=== PATIENT | female | born 2000 | race Caucasian/White ===

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

== ENCOUNTER → 2021-08-04 18:32 | Outpatient (CLI) | payer OTHER, SELFPAY ==
[2021-08-04 20:03] LABS: Influenza A - CEPHEID Flu A NEGATIVE (NEGATIVE); Influenza B - CEPHEID Flu B NEGATIVE (NEGATIVE)
[2021-08-04 20:30] LABS: COVID-19 CEPHEID PCR (VTM/NP) Negative (Negative)
== END ==
PROVIDERS: Visit Provider Physician Assistant
DX: R05.9 Cough, unspecified (principal); J02.9 Acute pharyngitis, unspecified
CPT/HCPCS: 0240U; 87070; 87077

== ENCOUNTER → 2021-08-07 15:10 | Outpatient (CLI) | payer OTHER, SELFPAY ==
--- NOTE | 2021-08-07 15:13 | DI.RAD.S_ITS ---
PROCEDURE: XR CHEST 2V INDICATIONS: cough, fever, worsening TECHNIQUE: 2 views of the chest were acquired. COMPARISON: None. FINDINGS: Surgical changes and devices: None. Lungs and pleura: Lungs are clear. No pleural effusions or pneumothorax. Mediastinum: Mediastinal contours are normal. Heart size is normal. Bones and chest wall: No suspicious bony abnormalities. Soft tissues appear unremarkable. IMPRESSION: No acute cardiopulmonary disease. Dictated by: Chaitanya Lepe M.D. on 08/07/2021 at 14:26 Approved by: Chaitanya Lepe M.D. on 08/07/2021 at 14:26
== END ==
PROVIDERS: Referring Provider Physician Assistant; Visit Provider Physician Assistant
DX: J06.9 Acute upper respiratory infection, unspecified (principal)
CPT/HCPCS: 71046

== ENCOUNTER → 2021-08-22 15:30 | Outpatient (CLI) | payer OTHER, SELFPAY | PROVIDERS: Visit Provider Nurse Practitioner Family | DX: J02.9 Acute pharyngitis, unspecified (principal) | CPT/HCPCS: 87070 ==

== ENCOUNTER 2021-10-25 18:24 | Emergency (ER) | payer OTHER, SELFPAY ==
[2021-10-25 19:14] VITALS: BP 139/94; PULSE 108; RESP 18; TEMP 36.6; O2SAT 97; BMI 22.7
--- NOTE | 2021-10-25 20:31 | ED.BACK ---
HPI - Back Pain/Injury General Chief Complaint: Back Pain/Injury Stated Complaint: low back pain radiating down legs Time Seen by Provider: 10/25/21 20:29 Source: patient History of Present Illness HPI Narrative: 21F nonsmoker with extensive history of back problems presents with her significant other and the chief complaint of recurrence of back pain with radiation down her left leg. She denies trauma, use of blood thinners or fever. She denies loss of bowel or bladder control. She denies extremity weakness or foot drop. Her pain is worse with movement and improves with rest. Related Data Previous Rx's Medication Instructions Recorded ondansetron 4 mg disintegrating 4 mg PO Q6H PRN nausea and 08/04/21 tablet vomiting #20 tabs benzonatate 100 mg capsule 100 mg PO BID PRN cough #20 caps 08/22/21 cyclobenzaprine 10 mg tablet 10 mg PO TID PRN muscle spasm #14 10/25/21 tabs gabapentin 300 mg capsule 300 mg PO BEDTIME #14 caps 10/25/21 ketorolac 10 mg tablet 10 mg PO Q6H PRN pain #14 tabs 10/25/21 methylprednisolone 4 mg tablets in See Rx Instructions PO .COMPLEX 10/25/21 a dose pack (Medrol (Lan)) #21 ea Allergies Allergy/AdvReac Type Severity Reaction Status Date / Time montelukast [From SINGULAIR] Allergy Unknown Unverified 08/22/21 15:11 prednisone [PREDNISONE] Allergy Unknown Unverified 08/22/21 15:11 sodium chloride for Allergy Unknown Unverified 08/22/21 15:11 inhalation [From NEBUSAL] Review of Systems Review of Systems Narrative: GENERAL: Denies chills, fatigue, malaise, fever, sweats. HEENT: Denies sinus pain, ear pain, sore throat, difficulty swallowing, dizziness. RESPIRATORY: Denies dyspnea, cough, wheezing, hemoptysis, sputum. CARDIOVASCULAR: Denies chest pain, palpitations, orthopnea, edema, GASTROINTESTINAL: Denies nausea, vomiting, abdominal pain, diarrhea, constipation, melena. : Denies dysuria, frequency, incontinence, hematuria, urinary retention. MUSCULOSKELETAL: See HPI SKIN: Denies rash, skin lesions, or other NEUROLOGIC: See HPI PSYCHIATRIC: No concerning psychosocial issues. 12 point review of systems is negative except for those stated above Patient History Medical History Pyelonephritis UTI (urinary tract infection) Social History Smoking Status: Never smoker Smoking Status: Never smoker Substance Use Type: does not use Exam Narrative Exam Narrative: GENERAL: [21] year old patient appears stated age. Well-developed patient, in mild distress. HEAD: Atraumatic. Normocephalic. EYES: Pupils equal round and reactive. Extraocular motions intact. No scleral icterus. No injection or drainage. ENT: Nose without bleeding, purulent drainage. Throat without erythema, tonsillar hypertrophy or exudate. Airway patent. NECK: Trachea midline. Non tender CARDIOVASCULAR: Regular rate and rhythm without murmurs, gallops, or rubs. RESPIRATORY: Clear to auscultation. Breath sounds equal bilaterally. No wheezes, rales, or rhonchi. GASTROINTESTINAL: Abdomen soft, non-tender, nondistended. EXTREMITIES: No edema or joint tenderness. BACK: winder tender but free of any obvious external abnormalities. Patient exam notes decreased range of motion and muscle spasm, but no CVA tenderness, or vertebral point tenderness. There are no symptoms of cauda equina such as saddle anesthesia, and decreased reflexes, decreased sensation or strength. NEURO: AOx3. SKIN: No rash or erythema of visible areas Initial Vital Signs Initial Vital Signs: Vital Signs Temperature 98 F 10/25/21 19:14 Pulse Rate 108 H 10/25/21 19:14 Respiratory Rate 18 10/25/21 19:14 Blood Pressure 139/94 H 10/25/21 19:14 Pulse Oximetry 97 10/25/21 19:14 Oxygen Delivery Method 10/25/21 19:14 Course Orders Ordered: Discontinued Medications Cyclobenzaprine HCl (Cyclobenzaprine 10 Mg Prepack) 1 bottle MISC SEEINSTR ONE Stop: 10/25/21 20:45 Last Admin: 10/25/21 20:53 Dose: 1 bottle Documented By: ARIEL Gabapentin (Gabapentin 300 Mg Capsule) 300 mg PO NOW ONE Stop: 10/25/21 20:45 Last Admin: 10/25/21 20:53 Dose: 300 mg Documented By: NR Vital Signs Vital signs: Vital Signs - 8 hr 10/25/21 19:14 Temperature 98 F Pulse Rate 108 H Respiratory Rate 18 Blood Pressure 139/94 H Pulse Oximetry 97 Oxygen Delivery Method Room Air MDM - Back Pain/Injury MDM Narrative Medical decision making narrative: Multiple etiologies of back pain considered including; Epidural abscess, cauda equina, mass occupying lesion, and other considered, however no neurosurgical emergencies are thought to be present, given patient's reassuring history and physical exam Discharge Plan Departure Patient Disposition: Home Clinical Impression: Acute back pain with radiculopathy Instructions: DI for Lumbar Radiculopathy Activity Restrictions/Additional Instructions: *You have been diagnosed with [acute lumbar radiculopathy without evidence of spinal cord injury] *What to do: *Please continue to take your regular medications as directed. [ x] New medication prescriptions sent to your pharmacy: [ [facility]] [ ] New medication written as a paper prescription [ ] No new medications given *Please follow up with either of the back specialists listed belowe 2-3 days, call for an appointment. Let them know you were seen in the Emergency Department and that we ask that you be seen in follow up. *If you do not have a primary care provider please contact the [facility] Resource line at [phone]. They will ask some questions about your medical history and help get you set up with a doctor in the community. *Return to Emergency Department if you should have any new, worsening or concerning symptoms, such as [fever greater than 101 F, shaking chills, worsening pain, persistent vomiting or other bothersome symptoms] Prescriptions: New cyclobenzaprine 10 mg tablet 10 mg PO TID PRN (Reason: muscle spasm) Qty: 14 0RF ketorolac 10 mg tablet 10 mg PO Q6H PRN (Reason: pain) Qty: 14 0RF gabapentin 300 mg capsule 300 mg PO BEDTIME Qty: 14 0RF methylprednisolone [Medrol (Lan)] 4 mg tablets,dose pack See Rx Instructions .ROUTE .COMPLEX Qty: 21 0RF Rx Instructions: orally per package directions No Action ondansetron 4 mg tablet,disintegrating 4 mg PO Q6H PRN (Reason: nausea and vomiting) Qty: 20 0RF benzonatate 100 mg capsule 100 mg PO BID PRN (Reason: cough) Qty: 20 0RF Referrals: Juan Diego Davis DO [Physician] - Peyman Smyth MD [Physician] - Visit Report Forms: Patient Portal/API
[2021-10-25] MEDS: CYCLOBENZAPRINE 10 MG PREPACK 1 BOTTLE MISC (20:53)
[2021-10-25] MEDS: GABAPENTIN 300 MG CAPSULE PO (20:53)
--- NOTE | 2021-10-25 21:00 | PC.NURSE ---
provider assessed patient.
== END 2021-10-25 21:01 | disposition home or self-care (01) ==
PROVIDERS: Emergency Provider Emergency Medicine
DX: M54.16 Radiculopathy, lumbar region (principal)
CPT/HCPCS: 99283

== ENCOUNTER → 2021-11-29 16:41 | Outpatient (CLI) | payer OTHER, SELFPAY ==
--- NOTE | 2021-11-29 16:48 | DI.RAD.S_ITS ---
PROCEDURE: XR LUMBAR SPINE 2-3V INDICATIONS: low back pain, hx of degeneration and pinched nerve TECHNIQUE: 3 views of the lumbar spine were acquired. COMPARISON: None. FINDINGS: Bones: 6 [id number] vertebrae are present. There is normal bony alignment. No vertebral body compression fractures. Mild bony neural foraminal narrowing at L6-S1. No suspicious bony lesions. Soft tissues: Overlying bowel gas pattern is normal. No suspicious soft tissue calcifications. IMPRESSION: No fractures identified. Suspect bony neural foraminal narrowing at L6-S1. Consider follow-up MRI for further evaluation. Dictated by: Guille Starr M.D. on 11/29/2021 at 17:19 Approved by: Guille Starr M.D. on 11/29/2021 at 17:21
== END ==
PROVIDERS: PCP Physician Assistant; Referring Provider Physician Assistant; Visit Provider Physician Assistant
DX: M54.42 Lumbago with sciatica, left side (principal); M54.41 Lumbago with sciatica, right side
CPT/HCPCS: 72100

== ENCOUNTER 2022-01-07 00:07 | Emergency (ER) | payer OTHER, SELFPAY ==
--- NOTE | 2022-01-07 00:09 | ED.CHESTPAIN ---
HPI - Chest Pain General Chief Complaint: Shortness of Breath/Dyspnea Stated Complaint: chest pain/sob Time Seen by Provider: 01/07/22 00:09 History of Present Illness HPI narrative: 21-year-old female nonsmoker with history of anxiety, prior lumbar radiculopathy presents with significant other and a chief complaint of gradually worsening chest pain, shortness of breath and rapid heart rate over the course of the night. She is admittedly had a stressful night and got some bad news at home and then is reported to have been involved in argument with her significant other and symptoms soon started. She complains of a pressure or squeezing across her anterior chest and denies any radiation. She denies any obvious provocation or palliation. She denies recent travel, history of blood clot but does take control. She denies any lower extremity pain or swelling nor redness or warmth. She takes control which keeps her from having a menstrual cycle. She has had a couple loose stools in the past week but has otherwise been well Related Data Previous Rx's Medication Instructions Recorded ondansetron 4 mg disintegrating 4 mg PO Q6H PRN nausea and 08/04/21 tablet vomiting #20 tabs benzonatate 100 mg capsule 100 mg PO BID PRN cough #20 caps 08/22/21 gabapentin 300 mg capsule 300 mg PO BEDTIME #14 caps 10/25/21 methylprednisolone 4 mg tablets in See Rx Instructions PO .COMPLEX 10/25/21 a dose pack (Medrol (Lan)) #21 ea cyclobenzaprine 10 mg tablet 10 mg PO TID PRN muscle spasm #30 11/29/21 tabs ketorolac 10 mg tablet 10 mg PO Q6H PRN pain #14 tabs 11/29/21 Allergies Allergy/AdvReac Type Severity Reaction Status Date / Time montelukast [From SINGULAIR] Allergy Unknown Unverified 11/29/21 15:59 prednisone [PREDNISONE] Allergy Unknown Unverified 11/29/21 15:59 sodium chloride for Allergy Unknown Unverified 11/29/21 15:59 inhalation [From NEBUSAL] Review of Systems Review of Systems Narrative: GENERAL: Denies chills, fatigue, malaise, fever, sweats. HEENT: Denies sinus pain, ear pain, sore throat, difficulty swallowing, dizziness. RESPIRATORY: See HPI CARDIOVASCULAR: See HPI GASTROINTESTINAL: Denies nausea, vomiting, abdominal pain, diarrhea, constipation, melena. : Denies dysuria, frequency, incontinence, hematuria, urinary retention. MUSCULOSKELETAL: denies weakness, joint pain, or bony pain SKIN: Denies rash, skin lesions, or other NEUROLOGIC: Denies weakness, headache, numbness, change in speech, confusion, seizures, incoordination. PSYCHIATRIC: No concerning psychosocial issues. 12 point review of systems is negative except for those stated above Patient History Medical History (Updated 01/07/22 @ 01:48 by Edmond Priest DO) Pyelonephritis UTI (urinary tract infection) Social History Smoking Status: Never smoker Smoking Status: Never smoker Substance Use Type: does not use Exam Narrative Exam Narrative: GENERAL: [21] year old patient appears stated age. Well-developed patient, in moderate distress, tearful and anxious, hyperventilating HEAD: Atraumatic. Normocephalic. EYES: Pupils equal round and reactive. Extraocular motions intact. No scleral icterus. No injection or drainage. ENT: Nose without bleeding, purulent drainage. Throat without erythema, tonsillar hypertrophy or exudate. Airway patent. NECK: Trachea midline. Non tender CARDIOVASCULAR: Tachycardic and regular rhythm without murmurs, gallops, or rubs. RESPIRATORY: Clear to auscultation. Breath sounds equal bilaterally. No wheezes, rales, or rhonchi. Rapid breathing GASTROINTESTINAL: Abdomen soft, non-tender, nondistended. EXTREMITIES: No edema or joint tenderness. BACK: Nontender without deformity or crepitance. No flank tenderness. NEURO: AOx3. SKIN: No rash or erythema of visible areas Initial Vital Signs Initial Vital Signs: Vital Signs Temperature 97.5 F L 01/07/22 00:16 Pulse Rate 139 H 01/07/22 00:16 Respiratory Rate 28 H 01/07/22 00:16 Blood Pressure 147/93 H 01/07/22 00:16 Pulse Oximetry 100 01/07/22 00:16 Oxygen Delivery Method 01/07/22 00:16 Scores HEART Score Heart Score history: Slightly Suspicious Heart Score EKG: Normal Heart Score Age: < 45 years old Heart Score risk factors: No known risk factors Heart Score troponin: < or = to normal limit Heart Score Total: 0 Course Orders Ordered: ED Orders 01/07/22 00:16 XR chest 2V Stat 01/07/22 00:30 C-Reactive Protein Quant Stat COVID19 -Nasal RAPID/Pre-Proc Stat Complete Blood Count AUTO DIFF Stat Comprehensive Metabolic Panel Stat D Dimer Stat Erythrocyte Sedimentation Rate Stat Magnesium Stat Troponin & CK Cardiac Panel Stat Discontinued Medications Sodium Chloride (Normal Saline 0.9%) 1,000 mls @ 1,000 mls/hr IV BOLUS ONE Stop: 01/07/22 01:14 Last Admin: 01/07/22 01:10 Dose: 1,000 mls/hr Documented By: MORRIS Lorazepam (Lorazepam 2 Mg/Ml Inj) 0.5 mg IV NOW ONE Stop: 01/07/22 01:03 Last Admin: 01/07/22 01:10 Dose: 0.5 mg Documented By: MORRIS Vital Signs Vital signs: Vital Signs - 8 hr 01/07/22 00:16 Temperature 97.5 F L Pulse Rate 139 H Respiratory Rate 28 H Blood Pressure 147/93 H Pulse Oximetry 100 Oxygen Delivery Method Room Air MDM - Chest Pain Lab Data Result diagrams: 01/07/22 00:30 01/07/22 00:30 Labs: Lab Results 01/07/22 01/07/22 01/07/22 Range/Units 00:30 00:30 00:30 WBC 6.9 (4.5-11.0) X10^3/uL RBC 4.88 (4.0-5.2) X10^6/uL Hgb 15.2 (12.0-16.0) g/dL Hct 43.4 (36-46) % MCV 88.8 (80-100) fL MCH 31.1 (26-34) PG MCHC 35.0 (30-36) % RDW 12.7 (11.6-14.8) % Plt Count 400 (150-400) X10^3/uL Neut % (Auto) 68.9 (50-75) % Lymph % (Auto) 23.4 L (25-40) % Mineral % (Auto) 7.1 (3-14) % Eos % (Auto) 0.2 L (2-4) % Baso % (Auto) 0.4 (0-2) % Neut # (Auto) 4800 (2659-5871) /uL Lymph # (Auto) 1600 (3221-0783) /uL Mineral # (Auto) 500 (0-900) /uL Eos # (Auto) 0 (0-450) /uL Baso # (Auto) 0 (0-100) /uL ESR (0-20) MM/HR D-Dimer < 215 (<500) ng/ml Sodium 140 (137-145) mmol/L Potassium 3.7 (3.4-5.1) mmol/L Chloride 104 (98-107) mmol/L Carbon Dioxide 23 (22-32) mmol/L BUN 14 (7-17) mg/dL Creatinine 0.84 (0.52-1.04) mg/dL Estimated GFR > 60 (>60) mL/min BUN/Creatinine Ratio 16.7 (6-22) Glucose 119 H (70-100) mg/dL Calcium 9.3 (8.4-10.2) mg/dL Magnesium (1.6-2.3) mg/dL Total Bilirubin 0.4 (0.2-1.3) mg/dL AST 24 (14-36) IU/L ALT 17 (<35) IU/L Alkaline Phosphatase 51 (38-126) U/L Total Creatine Kinase (30-135) U/L CK-MB (CK-2) CK-MB (CK-2) Rel Index Troponin I (0.01-0.034) ng/mL C-Reactive Protein < 0.5 (<1.0) mg/dL Total Protein 8.2 (6.3-8.2) g/dL Albumin 4.9 (3.5-5.0) g/dL Globulin 3.3 (1.7-4.1) g/dL Albumin/Globulin Ratio 1.5 (1.0-2.8) SARS-CoV-2 (PCR) (Negative) 01/07/22 01/07/22 01/07/22 Range/Units 00:30 00:30 00:30 WBC (4.5-11.0) X10^3/uL RBC (4.0-5.2) X10^6/uL Hgb (12.0-16.0) g/dL Hct (36-46) % MCV (80-100) fL MCH (26-34) PG MCHC (30-36) % RDW (11.6-14.8) % Plt Count (150-400) X10^3/uL Neut % (Auto) (50-75) % Lymph % (Auto) (25-40) % Mineral % (Auto) (3-14) % Eos % (Auto) (2-4) % Baso % (Auto) (0-2) % Neut # (Auto) (2934-6265) /uL Lymph # (Auto) (2298-4294) /uL Mineral # (Auto) (0-900) /uL Eos # (Auto) (0-450) /uL Baso # (Auto) (0-100) /uL ESR 1 (0-20) MM/HR D-Dimer (<500) ng/ml Sodium (137-145) mmol/L Potassium (3.4-5.1) mmol/L Chloride (98-107) mmol/L Carbon Dioxide (22-32) mmol/L BUN (7-17) mg/dL Creatinine (0.52-1.04) mg/dL Estimated GFR (>60) mL/min BUN/Creatinine Ratio (6-22) Glucose (70-100) mg/dL Calcium (8.4-10.2) mg/dL Magnesium 2.1 (1.6-2.3) mg/dL Total Bilirubin (0.2-1.3) mg/dL AST (14-36) IU/L ALT (<35) IU/L Alkaline Phosphatase (38-126) U/L Total Creatine Kinase 91 (30-135) U/L CK-MB (CK-2) TNP CK-MB (CK-2) Rel Index TNP Troponin I < 0.012 (0.01-0.034) ng/mL C-Reactive Protein (<1.0) mg/dL Total Protein (6.3-8.2) g/dL Albumin (3.5-5.0) g/dL Globulin (1.7-4.1) g/dL Albumin/Globulin Ratio (1.0-2.8) SARS-CoV-2 (PCR) Negative (Negative) MDM Narrative Medical decision making narrative: Multiple causes of chest pain considered including NM, PE, pneumothorax, pneumonia, aortic dissection, and pleurisy. Patient reports no radiation, no diaphoresis, no provocation with exertion, and no vomiting Patient's symptoms improved over duration of stay with above-stated therapies. Heart rate dropped into the 90s, it is noted that each time I entered the room to speak with her it would shoot back up to the 110s to 120s but then dropped again upon my departure. It was seem likely that there is at least some level of an anxiety response to this presentation Findings and discharge diagnosis discussed with patient/family followed by verbalization of understanding Return precautions discussed with patient/family whom verbalize understanding. Discharge Plan Departure Patient Disposition: Home Clinical Impression: Atypical chest pain Instructions: DI for Atypical Chest Pain Activity Restrictions/Additional Instructions: *You have been diagnosed with [atypical chest pain. As we discussed your history and physical exam are very reassuring as is your response to therapies. Her labs are unremarkable demonstrate no indication of heart attack, blood clot, electrolyte abnormality or other significant underlying condition.] *What to do: *Please continue to take your regular medications as directed. *Please follow up with your primary care provider in 2-3 days, call for an appointment. Let them know you were seen in the Emergency Department and that we ask that you be seen in follow up. We will electronically transmit a record of today's note if your PCP is in our system *If you do not have a primary care provider please contact the [facility] Resource line at [phone] They will ask some questions about your medical history and help get you set up with a doctor in the community. *Return to Emergency Department if you should have any new, worsening or concerning symptoms, such as [fever greater than 101 F, shaking chills, worsening pain, persistent vomiting or other bothersome symptoms] . Prescriptions: No Action ondansetron 4 mg tablet,disintegrating 4 mg PO Q6H PRN (Reason: nausea and vomiting) Qty: 20 0RF benzonatate 100 mg capsule 100 mg PO BID PRN (Reason: cough) Qty: 20 0RF ketorolac 10 mg tablet 10 mg PO Q6H PRN (Reason: pain) Qty: 14 0RF cyclobenzaprine 10 mg tablet 10 mg PO TID PRN (Reason: muscle spasm) Qty: 30 0RF gabapentin 300 mg capsule 300 mg PO BEDTIME Qty: 14 0RF methylprednisolone [Medrol (Lan)] 4 mg tablets,dose pack See Rx Instructions .ROUTE .COMPLEX Qty: 21 0RF Rx Instructions: orally per package directions Referrals: Antoinette Bundy PA-C [Primary Care Provider] -
[2022-01-07 00:16] VITALS: BP 147/93; PULSE 139; RESP 28; TEMP 36.4; O2SAT 100; BMI 23.5
--- NOTE | 2022-01-07 00:16 | DI.RAD.S_ITS ---
PROCEDURE: XR CHEST 2V INDICATIONS: SOB and chest pain TECHNIQUE: 2 views of the chest were acquired. COMPARISON: [facility], CR, XR CHEST 2V, 08/07/2021, 15:03. FINDINGS: Surgical changes and devices: None. Lungs and pleura: Lungs are clear. No pleural effusions or pneumothorax. Mediastinum: Mediastinal contours are normal. Heart size is normal. Bones and chest wall: No suspicious bony abnormalities. Soft tissues appear unremarkable. IMPRESSION: 1. No acute cardiopulmonary disease. Dictated by: Bj Powers M.D. on 01/07/2022 at 1:08 Approved by: Bj Powers M.D. on 01/07/2022 at 1:09
[2022-01-07 00:45] LABS: Add Manual Diff / Slide Review NO; Basophils Absolute Auto 0 /uL (0-100); Basophils Percent Auto 0.4 % (0-2); Eosinophils Absolute Auto 0 /uL (0-450); Eosinophils Percent Auto 0.2 % (2-4); Hematocrit 43.4 % (36-46); Hemoglobin 15.2 g/dL (12.0-16.0); Lymphocytes Absolute Auto 1600 /uL (1100-4500); Lymphocytes Percent Auto 23.4 % (25-40); Mean Corpuscular Hemoglobin 31.1 PG (26-34); Mean Corpuscular Volume 88.8 fL (80-100); Monocytes Absolute Auto 500 /uL (0-900); Monocytes Percent Auto 7.1 % (3-14); Neutrophils Absolute Auto 4800 /uL (1500-7000); Neutrophils Percent Auto 68.9 % (50-75); Platelet Count 400 X10^3/uL (150-400); Red Blood Cell Count 4.88 X10^6/uL (4.0-5.2); Red Cell Distribution Width 12.7 % (11.6-14.8); White Blood Cell Count 6.9 X10^3/uL (4.5-11.0)
[2022-01-07 00:53] LABS: D Dimer < 215 ng/ml (<500)
[2022-01-07 00:55] LABS: Creatine Kinase 91 U/L (30-135); Magnesium 2.1 mg/dL (1.6-2.3)
[2022-01-07 00:58] LABS: Alanine Aminotransferase 17 IU/L (<35); Albumin 4.9 g/dL (3.5-5.0); Albumin Globulin Ratio 1.5 (1.0-2.8); Alkaline Phosphatase 51 U/L (38-126); Aspartate Aminotransferase 24 IU/L (14-36); BUN Creatinine Ratio 16.7 (6-22); Bilirubin Total 0.4 mg/dL (0.2-1.3); Blood Urea Nitrogen 14 mg/dL (7-17); C-Reactive Protein Quant < 0.5 mg/dL (<1.0); Calcium 9.3 mg/dL (8.4-10.2); Carbon Dioxide 23 mmol/L (22-32); Chloride 104 mmol/L (98-107); Estimated Glomerular Filt Rate > 60 mL/min (>60); Globulin 3.3 g/dL (1.7-4.1); Glucose 119 mg/dL (70-100); HEMOLYSIS 17 (0-50); Potassium 3.7 mmol/L (3.4-5.1); Sodium 140 mmol/L (137-145); Total Protein 8.2 g/dL (6.3-8.2)
[2022-01-07 01:00] LABS: COVID19 -Nasal RAPID Negative (Negative)
[2022-01-07 01:08] LABS: Troponin I < 0.012 ng/mL (0.01-0.034)
[2022-01-07] MEDS: LORazepam 2 MG/ML INJ 0.5 MG IV (01:10)
[2022-01-07] MEDS: SODIUM CHLORIDE 0.9% 1,000 ML 1000 ML IV (01:10)
[2022-01-07 01:11] LABS: Erythrocyte Sedimentation Rate 1 MM/HR (0-20)
[2022-01-07 01:58] VITALS: BP 130/74; PULSE 102; RESP 19; O2SAT 97
== END 2022-01-07 02:00 | disposition home or self-care (01) ==
PROVIDERS: Emergency Provider Emergency Medicine; PCP Physician Assistant
DX: R07.89 Other chest pain (principal); Z20.822 Contact with and (suspected) exposure to COVID-19
CPT/HCPCS: 36415; 71046; 80053; 82550; 83735; 84484; 85025; 85379; 85651; 86140; 87635; 96374; 99284; C9803; J2060

== ENCOUNTER → 2024-02-07 13:43 | Outpatient (CLI) | payer OTHER, SELFPAY | PROVIDERS: PCP Family Medicine; Referring Provider Family Medicine; Visit Provider Family Medicine | DX: Z02.1 Encounter for pre-employment examination (principal) | CPT/HCPCS: 36415; 86480 ==

== ENCOUNTER → 2024-02-14 12:05 | Outpatient (CLI) | payer OTHER, SELFPAY ==
[2024-02-18 12:11] LABS: QuantiFERON Mitogen Value >10.00 IU/mL (.); QuantiFERON TB Gold Plus Negative (Negative); QuantiFERON TB1 Ag Value 0.03 IU/mL (.)
== END ==
PROVIDERS: PCP Family Medicine; Referring Provider Family Medicine; Visit Provider Family Medicine
DX: Z02.1 Encounter for pre-employment examination (principal)
CPT/HCPCS: 86480

== ENCOUNTER → 2024-04-24 06:53 | Outpatient (CLI) | payer OTHER, SELFPAY ==
--- NOTE | 2024-04-24 06:54 | DI.US.S_ITS ---
PROCEDURE: US ABDOMEN COMPLETE INDICATIONS: Bilateral abdominal pain TECHNIQUE: Real-time scanning was performed of the abdominal and retroperitoneal organs, with image documentation. COMPARISON: None. FINDINGS: Liver: Normal size liver. Smooth margin. No mass. Gallbladder: The gallbladder is normal without stones, sludge, wall thickening, or pericholecystic fluid. Biliary ducts: Intrahepatic bile ducts are non-dilated. Extrahepatic bile duct caliber measures 2.8 mm. Normal is 6-7 mm or less in diameter, or 10 mm or less post-cholecystectomy. Pancreas: Visualized portions of the pancreas are sonographically normal. Spleen: Spleen is normal in size, 10.7 cm, and homogeneous in echotexture. Kidneys: Kidneys are normal in size and echotexture. Right kidney measures 11.5 cm long; left kidney measures 10.8 cm long. No hydronephrosis or nephrolithiasis. No solid masses. Aorta: Visualized aorta is normal in caliber at less than 3 cm. Iliacs: Proximal common iliac arteries are normal in caliber at less than 2.5 cm. IVC: Intrahepatic inferior vena cava is patent. Miscellaneous: No free abdominal fluid. Indicated right lower quadrant and left lower quadrant areas of pain corresponds to the patient's prior laparoscopic access scars. The underlying abdominal wall in both areas appears intact. No evidence of hernia at rest or during Valsalva maneuver. No subcutaneous cyst or solid mass. IMPRESSION: Focal areas of pain in the bilateral lower quadrants demonstrate normal sonographic appearance and intact underlying abdominal doan. Abdominal ultrasound is otherwise normal. Dictated by: Nathaly Gee M.D. on 04/25/2024 at 8:46 Approved by: Nathaly Gee M.D. on 04/25/2024 at 8:49
--- NOTE | 2024-04-24 06:54 | DI.US.S_ITS ---
PROCEDURE: US PELVIC COMPLETE INDICATIONS: Worsening episodic RLQ pain s/p appendectomy TECHNIQUE: Real-time scanning was performed of the pelvic organs, with image documentation. Additional endovaginal scanning was necessary due to incomplete visualization of the adnexal and endometrial structures by transabdominal scanning. COMPARISON: None. FINDINGS: Uterus: Uterus is anteverted and normal in size at 6.7 x 3.5 x 2.0 cm. The myometrium is homogeneous. The endometrium measures 1.6 mm combined thickness. Ovaries: The right ovary measures 2.4 x 2.4 x 1.5 cm, with a calculated ovarian volume of 4.5 cc. The left ovary measures 2.8 x 1.7 x 1.3 cm, with a calculated ovarian volume of 3.2 cc. The ovaries have a normal sonographic appearance. Greater than 12 follicles can be seen in each ovary. No adnexal masses are seen. Other: No pathologic free abdominal or pelvic fluid. IMPRESSION: No acute sonographic findings. Incidental finding of bilateral ovaries containing greater than 12 follicles in each. Findings can be seen in the setting of polycystic ovarian syndrome (PCOS). Approved by: Rufina Bell M.D.,Ph.D. on 04/24/2024 at 9:38
== END ==
PROVIDERS: PCP Family Medicine; Referring Provider Family Medicine; Visit Provider Family Medicine
DX: R93.89 Abnormal findings on diagnostic imaging of other specified body structures (principal); R10.31 Right lower quadrant pain; R10.32 Left lower quadrant pain; Z90.49 Acquired absence of other specified parts of digestive tract
CPT/HCPCS: 76700; 76830; 76856

== ENCOUNTER 2024-05-15 12:01 | Emergency (ER) | payer OTHER, SELFPAY ==
[2024-05-15 12:05] VITALS: BP 142/96; PULSE 114; RESP 16; TEMP 36.6; O2SAT 98; BMI 25.0
--- NOTE | 2024-05-15 12:51 | ED_ITS ---
HPI - Back Pain/Injury <Brigette Dela Cruz PA-C - Last Filed: 05/15/24 22:14> General Chief Complaint: Back Pain/Injury Stated Complaint: back px x1wk getting worse, trouble walking Time Seen by Provider: 05/15/24 12:51 Source: patient History of Present Illness HPI Narrative: Ms. Kapoor is a pleasant 23-year-old female with a past medical history of asthma, herniated disc who presents to the emergency department for low back pain x1 week, acutely worsened today. 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 She attempted to work through this pain over the last week however today when bending down to reach something on the bottom shelf of her refrigerator she developed again acute sudden severe pain of the low back. Reports she a cane she only has some pain shooting down the back of her legs worse on the left side. Pain is exacerbated by going from a sitting to standing position, pain is minimal when she is walking around or lying flat but moving from 1 position to another makes it severe. She took Tylenol this morning which did not resolve the pain. She denies any weakness of the lower extremities, numbness, bowel or bladder dysfunction, fevers, chills, nausea, vomiting, diarrhea, constipation, history of IV drug use. No fall or direct trauma to the back. Related Data Home Medications Medication Instructions Recorded Confirmed norethindrone 1.5 mg-ethinyl 1 tab PO DAILY control 02/28/23 04/17/24 estradiol 30 mcg(21)/iron 75 mg(7) tablet (Microgestin Fe 1.5/30 (28)) Previous Rx's Medication Instructions Recorded albuterol sulfate 90 mcg/actuation 2 puff inhalation Q6H PRN 05/23/23 aerosol inhaler (ProAir HFA) shortness of breath or wheezing #8.5 grams bupropion HCl 300 mg 24 hr tablet, 300 mg PO QAM #90 tabs 01/07/24 extended release lidocaine 5 % topical patch 1 patch topical DAILY #15 ea 05/15/24 (Lidoderm) methocarbamol 500 mg tablet 500 mg PO TID #20 tabs 05/15/24 methylprednisolone 4 mg tablets in See Rx Instructions PO .COMPLEX 05/15/24 a dose pack (Medrol (Lan)) #21 ea naproxen 500 mg tablet 500 mg PO BID PRN pain #20 tabs 05/15/24 sumatriptan succinate 25 mg tablet See Rx Instructions PO .COMPLEX 05/27/24 #30 tabs Allergies Allergy/AdvReac Type Severity Reaction Status Date / Time montelukast [From SINGULAIR] Allergy Unknown Verified 05/15/24 12:05 sodium chloride for Allergy Unknown Verified 05/15/24 12:05 inhalation [From NEBUSAL] Review of Systems <Brigette Dela Cruz PA-C - Last Filed: 05/15/24 22:14> Review of Systems ROS Unobtainable: All systems reviewed & are unremarkable except as noted in HPI and below Patient History <Brigette Dela Cruz PA-C - Last Filed: 05/15/24 22:14> Medical History Closed head injury Viral syndrome Migraine headache without aura History of irregular menstrual cycles Chronic headaches Asthma Depression History of anxiety Hx of migraines History of ADHD Pyelonephritis UTI (urinary tract infection) Surgical History History of appendectomy Social History Smoking Status: Never smoker Smoking Status: Never smoker Exam <Brigette Dela Cruz PA-C - Last Filed: 05/15/24 22:14> Narrative Exam Narrative: GENERAL: 23 year old patient appears stated age. Well-developed patient, in no acute distress laying in strecther. HEAD: Atraumatic. Normocephalic. NECK: Trachea midline. Cervical ROM intact. CARDIOVASCULAR: Regular rate and rhythm. RESPIRATORY: ?Nonlabored respirations. ?Speaking in clear, full sentences. ?Clear to auscultation. Breath sounds equal bilaterally. No wheezes, rales, or rhonchi. ? GASTROINTESTINAL: Abdomen soft, non-tender, nondistended. Normal bowel sounds. EXTREMITIES: No edema or joint tenderness. BACK: Tenderness to pass patient of midline lumbar region. No paraspinal muscle tenderness. No CVA tenderness. Positive left-sided straight leg raise. Pain is exacerbated by having patient go from a lying position on her back to a lying position on her side or from having the patient go from a lying position on her back to sitting upright. NEURO: AOx3. ?Clear speech. ?Moves all 4 extremities appropriately. Sensation intact to light touch on the bilateral lower extremities, groin. She is able to wiggle her toes and has good plantar and dorsiflexion strength of the feet. Low back pain is exacerbated by attempting to have her flex and extend the knees. SKIN: No rash or erythema of visible areas Initial Vital Signs Initial Vital Signs: Vital Signs Temperature 98 F 05/15/24 12:05 Pulse Rate 114 H 05/15/24 12:05 Respiratory Rate 16 05/15/24 12:05 Blood Pressure 142/96 H 05/15/24 12:05 Pulse Oximetry 98 05/15/24 12:05 Oxygen Delivery Method Room Air 05/15/24 12:05 <Lidia Pratt DO - Last Filed: 05/27/24 18:58> Initial Vital Signs Initial Vital Signs: Vital Signs Temperature 98 F 05/15/24 12:05 Pulse Rate 114 H 05/15/24 12:05 Respiratory Rate 16 05/15/24 12:05 Blood Pressure 142/96 H 05/15/24 12:05 Pulse Oximetry 98 05/15/24 12:05 Oxygen Delivery Method Room Air 05/15/24 12:05 Course <Brigette Dela Cruz PA-C - Last Filed: 05/15/24 22:14> Orders Ordered: Discontinued Medications Dexamethasone (Dexamethasone 4 Mg/Ml Vial) 4 mg IV NOW ONE Stop: 05/15/24 14:22 Last Admin: 05/15/24 14:42 Dose: 4 mg Documented By: MEGHNA Sodium Chloride (Normal Saline 0.9%) 1,000 mls @ 1,000 mls/hr IV BOLUS ONE Stop: 05/15/24 15:20 Last Infusion: 05/15/24 16:03 Dose: Infused Documented By: Admin: 05/15/24 14:42 Dose: 1,000 mls/hr Documented By: MEGHNA Ketorolac Tromethamine (Ketorolac 30 Mg/Ml Vial) 15 mg IV NOW ONE Stop: 05/15/24 14:22 Last Admin: 05/15/24 14:43 Dose: 15 mg Documented By: MEGHNA Morphine Sulfate (Morphine 4 Mg/Ml Inj) 4 mg IV NOW ONE Stop: 05/15/24 14:22 Last Admin: 05/15/24 14:44 Dose: 4 mg Documented By: MEGHNA Ondansetron HCl (Ondansetron 4 Mg/2 Ml Inj) 4 mg IV NOW ONE Stop: 05/15/24 14:22 Last Admin: 05/15/24 14:44 Dose: 4 mg Documented By: MEGHNA Vital Signs Vital signs: Vital Signs - 8 hr 05/15/24 16:56 Pulse Rate 98 H Respiratory Rate 16 Blood Pressure 135/84 Pulse Oximetry 99 Oxygen Delivery Method Room Air <Lidia Pratt DO - Last Filed: 05/27/24 18:58> Orders Ordered: Discontinued Medications Dexamethasone (Dexamethasone 4 Mg/Ml Vial) 4 mg IV NOW ONE Stop: 05/15/24 14:22 Last Admin: 05/15/24 14:42 Dose: 4 mg Documented By: MEGHNA Sodium Chloride (Normal Saline 0.9%) 1,000 mls @ 1,000 mls/hr IV BOLUS ONE Stop: 05/15/24 15:20 Last Infusion: 05/15/24 16:03 Dose: Infused Documented By: Admin: 05/15/24 14:42 Dose: 1,000 mls/hr Documented By: MEGHNA Ketorolac Tromethamine (Ketorolac 30 Mg/Ml Vial) 15 mg IV NOW ONE Stop: 05/15/24 14:22 Last Admin: 05/15/24 14:43 Dose: 15 mg Documented By: MEGHNA Morphine Sulfate (Morphine 4 Mg/Ml Inj) 4 mg IV NOW ONE Stop: 05/15/24 14:22 Last Admin: 05/15/24 14:44 Dose: 4 mg Documented By: MEGHNA Ondansetron HCl (Ondansetron 4 Mg/2 Ml Inj) 4 mg IV NOW ONE Stop: 05/15/24 14:22 Last Admin: 05/15/24 14:44 Dose: 4 mg Documented By: MEGHAN Vital Signs Vital signs: Vital Signs - 8 hr 05/15/24 16:56 Pulse Rate 98 H Respiratory Rate 16 Blood Pressure 135/84 Pulse Oximetry 99 Oxygen Delivery Method Room Air MDM - Back Pain/Injury <Brigette Dela Cruz PA-C - Last Filed: 05/15/24 22:14> Medical Records Attestation: I reviewed the patient's medical records. Lab Data Labs: Lab Results 05/15/24 Range/Units 15:24 Urine RBC None seen (0-5/HPF) Urine WBC 1-5/hpf (0-5/HPF) Ur Squamous Epith Cells 1-5 /hpf (0-5/HPF) Urine Bacteria Many (>30) H (None) Ur Culture Indicated? Cult not indicated Vol Urine Centrifuged 10ml (spun) Point of Care Testing Test Results Negative Urine Dip Bedside Urine Glucose Negative Bedside Urine Bilirubin - Negative Bedside Urine Ketone ++ 40 Urine Specific [place] 1.025 Bedside Urine Occult Blood +/- Bedside Urine pH 6.0 Bedside Urine Protein - Negative Bedside Urine Urobilinogen - Negative Bedside Urine Nitrite - Negative Bedside Urine Leukocytes - Negative Esterase Imaging Data CT Lumbar Spine: Radiologist's Impression: PROCEDURE: CT LUMBAR SPINE WO CON INDICATIONS: acute lumbar pain w/ BL radic worse on L; hx disc herniat TECHNIQUE: Noncontrast 3 mm thick sections acquired from the T12 level to the sacrum. Sagittal and coronal reformats were constructed. For radiation dose reduction, the following was used: automated exposure control. COMPARISON: None. FINDINGS: Image quality: Excellent. Bones: There is normal bony alignment. No acute vertebral body compression fractures. No suspicious lytic or blastic bony lesions. No pars defects. No significant disc bulge, spinal stenosis or foraminal narrowing. Soft tissues: No retroperitoneal masses or hematomas. Visualized aorta is normal in caliber. IMPRESSION: No appreciable significant bulge, spinal stenosis or foraminal narrowing. [facility] Narrative Medical decision making narrative: 23-year-old female with a past medical history of asthma, herniated disc who pr esents to the emergency department for low back pain x1 week, acutely worsened today. Differential diagnosis includes but is not limited to herniated disc, lumbar radiculopathy, spinal stenosis, muscle spasm, muscle strain, etc. On exam patient is in no acute distress, nontoxic appearing however she does have severe lumbar pain with midline palpation or with movement from 1 position to another. History of herniated disc. No red flag symptoms including weakness or paresthesias of the lower extremities, bowel or bladder incontinence, fevers, history of IV drug use, trauma. You to patient's significant acute pain, we will proceed with CT lumbar imaging and treat pain with morphine, Toradol, Decadron, Zofran, fluids. UA with bacteria but no other findings of infection, patient is having no urinary symptoms so urine was cultured and we will hold off on any antibiotics. Her pain improved significantly with ED treatment, not entirely resolved but she is able to move and walk independently. CT scan of lumbar spine reveals no appreciable significant bulge, spinal stenosis or foraminal narrowing. Patient's symptoms are consistent with lumbar radiculopathy and I recommend she follow up with orthopedic spine surgeon for further evaluation and MRI. Patient was prescribed naproxen, Robaxin, acetaminophen, Lidoderm, Medrol Dosepak to help with symptoms currently. Recommended rest, avoiding strenuous activity, doing gentle exercises, TEns unit. Provided her with ortho spine follow up. ED return precautions discussed. Patient verbalized understanding of all information is agreeable with the plan, she is stable for discharge home, informed patient she will need a ride home since she received morphine. <Lidia Pratt, DO - Last Filed: 05/27/24 18:58> Lab Data Labs: Lab Results 05/15/24 Range/Units 15:24 Urine RBC None seen (0-5/HPF) Urine WBC 1-5/hpf (0-5/HPF) Ur Squamous Epith Cells 1-5 /hpf (0-5/HPF) Urine Bacteria Many (>30) H (None) Ur Culture Indicated? Cult not indicated Vol Urine Centrifuged 10ml (spun) Point of Care Testing Test Results Negative Urine Dip Bedside Urine Glucose Negative Bedside Urine Bilirubin - Negative Bedside Urine Ketone ++ 40 Urine Specific [place] 1.025 Bedside Urine Occult Blood +/- Bedside Urine pH 6.0 Bedside Urine Protein - Negative Bedside Urine Urobilinogen - Negative Bedside Urine Nitrite - Negative Bedside Urine Leukocytes - Negative Esterase Discharge Plan Departure Patient Disposition: Home Clinical Impression: Acute lumbar back pain Qualifiers: Back pain laterality: midline Sciatica presence: with sciatica Sciatica laterality: sciatica of left side Qualified Code(s): M54.42 - Lumbago with sciatica, left side Instructions: DI for Low Back Pain Activity Restrictions/Additional Instructions: Dear Ms. Kapoor, Today you were evaluated for severe low back pain. You were treated with steroids, pain medication, IV fluids, nausea medication in the emergency department. A CT scan of your lumbar spine does not reveal any obvious abnormalities. It is very important for you to rest, hydrate, follow up with your primary care doctor and use the prescribed medications. You may also take over the counter tylenol(acetaminophen) with these medications and try a TENs unit. Rest and do gentle stretching and exercise but avoid strenuous activity or heavy lifting. Please follow up with an orthopedic spine surgeon such as Dr. José Busch with [facility] in [facility], you can call [phone] schedule an appointment. Please return to the emergency department if you develop fevers, leg weakness, bowel or bladder dysfunction, severe pain or any other concerns. Please be aware that muscle relaxers may make you drowsy and you can not take these medications while driving a car, drinking alcohol, working as it may impair your ability to function normally. A urine culture was obtained today because your urinalysis did reveal some bacteria however no other signs of infection. The urine culture comes back positive you will be called in 3 days for antibiotics. Please follow up with your primary care doctor within the next 2-3 days for ER follow-up. (If you do not have a PCP you can call [phone]. ?to schedule an appointment with an [facility] Primary Care Provider) IF YOU DEVELOP ANY NEW OR WORSENING SYMPTOMS, RETURN TO THE ER! Please read the attached instructions, they highlight more specific treatments and interventions for you at home. Thank you for letting me participate in your care, Brigette Dela Cruz PA-C Prescriptions: New naproxen 500 mg tablet 500 mg PO BID PRN (Reason: pain) Qty: 20 0RF Rx Instructions: Take with food. methocarbamol 500 mg tablet 500 mg PO TID Qty: 20 0RF lidocaine [Lidoderm] 5 % adhesive patch,medicated 1 patch topical DAILY Qty: 15 0RF Rx Instructions: leave on most painful area for up to 12 hrs methylprednisolone [Medrol (Lan)] 4 mg tablets,dose pack See Rx Instructions .ROUTE .COMPLEX Qty: 21 0RF Rx Instructions: orally per package directions No Action albuterol sulfate [ProAir HFA] 90 mcg/actuation HFA aerosol inhaler 2 puff inhalation Q6H PRN (Reason: shortness of breath or wheezing) Qty: 8.5 3RF bupropion HCl 300 mg tablet extended release 24 hr 300 mg PO QAM Qty: 90 2RF sumatriptan succinate 25 mg tablet See Rx Instructions PO .COMPLEX Qty: 30 5RF Rx Instructions: take 1 tab at onset of headache; if no relief may repeat 1 tab after at least 2 hrs; max = 4 tabs/24 hr PO norethindrone-e.estradiol-iron [Microgestin Fe 1.5/30 (28)] 1.5 mg-30 mcg (21)/75 mg (7) tablet 1 tab PO DAILY Referrals: Lashaun Faye DO [Primary Care Provider] - Stand Alone Forms: Patient Portal/API/Survey, School Release Note, Work Release Note ED Sign-out <Lidia Pratt DO - Last Filed: 05/27/24 18:58> Cosign ED Attending Cosignature Attestation: I was immediately available in the department for consultation.
--- NOTE | 2024-05-15 14:21 | DI.CT.S_ITS ---
PROCEDURE: CT LUMBAR SPINE WO CON INDICATIONS: acute lumbar pain w/ BL radic worse on L; hx disc herniat TECHNIQUE: Noncontrast 3 mm thick sections acquired from the T12 level to the sacrum. Sagittal and coronal reformats were constructed. For radiation dose reduction, the following was used: automated exposure control. COMPARISON: None. FINDINGS: Image quality: Excellent. Bones: There is normal bony alignment. No acute vertebral body compression fractures. No suspicious lytic or blastic bony lesions. No pars defects. No significant disc bulge, spinal stenosis or foraminal narrowing. Soft tissues: No retroperitoneal masses or hematomas. Visualized aorta is normal in caliber. IMPRESSION: No appreciable significant bulge, spinal stenosis or foraminal narrowing. Dictated by: Fifi Schwartz M.D. on 05/15/2024 at 16:16 Approved by: Fifi Schwartz M.D. on 05/15/2024 at 16:18
[2024-05-15] MEDS: SODIUM CHLORIDE 0.9% 1,000 ML 1000 ML IV (14:42)
[2024-05-15] MEDS: DEXAMETHASONE 4 MG/ML VIAL IV (14:42)
[2024-05-15] MEDS: KETOROLAC 30 MG/ML VIAL 15 MG IV (14:43)
[2024-05-15] MEDS: ONDANSETRON 4 MG/2 ML INJ IV (14:44)
[2024-05-15] MEDS: MORPHINE 4 MG/ML INJ IV (14:44)
[2024-05-15 16:39] LABS: Bacteria Urine Many (>30); RBC Urine None Seen (0-5/HPF); Urine Volume 10mL (spun); WBC Urine 1-5/HPF (0-5/HPF)
[2024-05-15 16:40] LABS: Culture Indicated Urine Cult Not Indicated; Squamous Epithelial Cell Urine 1-5 /HPF (0-5/HPF)
[2024-05-15 16:56] VITALS: BP 135/84; PULSE 98; RESP 16; O2SAT 99
== END 2024-05-15 16:57 | disposition home or self-care (01) ==
PROVIDERS: Emergency Provider Physician Assistant; PCP Family Medicine
DX: M54.42 Lumbago with sciatica, left side (principal); Z87.39 Personal history of other diseases of the musculoskeletal system and connective tissue
CPT/HCPCS: 72131; 81003; 81015; 81025; 87086; 96361; 96374; 96375; 99283; 99284; J1100; J1885; J2270; J2405